=== PATIENT | male | born 1980 | race Caucasian/White ===

== ENCOUNTER 2020-12-17 19:47 | Emergency (ER) | payer MEDICAID ==
[~2020-12-17] VITALS: Ht 177.8 cm; Wt 104.3 kg
[2020-12-17 20:17] VITALS: BP 122/74
--- NOTE | 2020-12-17 20:20 | NUR ---
PT TO AWAIT IN TENT
--- NOTE | 2020-12-17 20:24 | NUR ---
DR MARTINES EXAMINING PT IN TENT
--- NOTE | 2020-12-17 20:45 | NUR ---
PT AMBULATED TO MAK
[2020-12-17] MEDS: ONDANSETRON 4 MG ODT PO ONE (20:52)
[2020-12-17] MEDS: KETOROLAC 30 MG/ML VIAL IM ONE (20:52)
[2020-12-17 20:59] LABS: BASOPHILS % (AUTO) 0.4 % (0.0-2.0); EOSINOPHILS # (AUTO) 0.1 K/uL (0-0.4); EOSINOPHILS % (AUTO) 1.7 % (0.0-4.0); HEMATOCRIT 44.8 % (36-52); HEMOGLOBIN 15.7 g/dL (12.0-18.0); LYMPHOCYTES % (AUTO) 40.6 % (20.5-51.1); MEAN CORPUSCULAR HEMOGLOBIN 31 pg (27-31); MEAN CORPUSCULAR HGB CONC 35 g/dL (33-37); MEAN CORPUSCULAR VOLUME 88.2 fL (80-94); MONOCYTES # (AUTO) 0.4 K/uL (0.8-1.0); NEUTROPHILS # (AUTO) 2.4 K/uL (1.8-7.7); NEUTROPHILS % (AUTO) 49.3 % (42.2-75.2); PLATELET COUNT (AUTO) 252 K/uL (140-450); RED BLOOD CELL COUNT(AUTO) 5.08 MIL/uL (4.20-6.10); RED CELL DISTRIBUTION WIDTH 12.9 % (11.6-13.7); WHITE BLOOD COUNT (AUTO) 4.8 K/uL (4.8-10.8)
[2020-12-17 21:11] LABS: BILIRUBIN,DIRECT 0.1 mg/dL (0.0-0.3)
--- NOTE | 2020-12-17 21:48 | NUR ---
PT MOVED TO ER BED 4
[2020-12-17 21:53] LABS: ANION GAP 11.4 (8-16); CARBON DIOXIDE 28.9 mmol/L (21-32); POTASSIUM 4.3 mmol/L (3.5-5.1)
--- NOTE | 2020-12-17 22:12 | NUR ---
Ultrasound at bedside.
[2020-12-17] MEDS ORDERED: ONDA-188 SL (22:20)
[2020-12-18 00:51] VITALS: BP 122/74
--- NOTE | 2020-12-18 00:51 | NUR ---
Patient discharged with v/s stable. Written and verbal after care instructions given and explained. Patient alert, oriented and verbalized understanding of instructions. Ambulatory with steady gait. All questions addressed prior to discharge. ID band removed. Patient advised to follow up with PMD. Rx of ZOFRAN ODT given. Patient educated on indication of medication including possible reaction and side effects. Opportunity to ask questions provided and answered.
== END 2020-12-18 00:51 | disposition home or self-care (01) ==
LOC: MED 19:47
DX: K52.9 Noninfective gastroenteritis and colitis, unspecified (principal); Z79.899 Other long term (current) drug therapy
CPT/HCPCS: 36415; 76705; 80048; 80076; 83690; 85025; 96372; 99284; J1885; Q0092; Q0162

== ENCOUNTER 2021-05-20 17:12 | Emergency (ER) | payer MEDICAID ==
[~2021-05-20] VITALS: Ht 180.3 cm; Wt 126.3 kg
[~2021-05-20 17:12] MED LIST: ONDA-188 SL
[2021-05-20 17:24] VITALS: BP 147/89
[2021-05-20] MEDS ORDERED: IBUP-2213 PO (17:44)
[2021-05-20] MEDS ORDERED: COROTSOL LEFT EAR (17:44)
[2021-05-20 17:59] VITALS: BP 147/89
== END 2021-05-20 17:58 | disposition home or self-care (01) ==
LOC: MED 17:12
DX: H60.502 Unspecified acute noninfective otitis externa, left ear (principal); Z79.899 Other long term (current) drug therapy
CPT/HCPCS: 99283